=== PATIENT | male | born 1955 | race Caucasian/White ===

== ENCOUNTER 2016-08-16 15:16 | Emergency (ER) | payer OTHER, MEDICAID ==
[2016-08-16 15:32] VITALS: BP 157/83; PULSE 64; RESP 16; TEMP 98.3; O2SAT 99; BMI 34.2
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
--- NOTE | 2016-08-17 08:22 | RAD ---
PROCEDURE: Cervical Spine Radiographs. HISTORY: Pain. COMPARISON: None. FINDINGS: BONES: Alignment maintained. No dislocation. Suboptimal view of the dens. DISC SPACES: Essentially intact. SOFT TISSUES: No prevertebral soft tissue swelling. OTHER FINDINGS: Dental hardware. IMPRESSION: No apparent dislocation. Suboptimal view of the dens. There is continued suspicion of fracture or dislocation, CT should be obtained.
== END 2016-08-16 19:43 | disposition home or self-care (01) ==
LOC: ED 15:16
DX: S16.1XXA Strain of muscle, fascia and tendon at neck level, initial encounter (principal); V49.9XXA Car occupant (driver) (passenger) injured in unspecified traffic accident, initial encounter; I10 Essential (primary) hypertension; E11.9 Type 2 diabetes mellitus without complications; R20.9 Unspecified disturbances of skin sensation